=== PATIENT | male | born 1940 | race Caucasian/White ===

== ENCOUNTER 2017-07-26 01:09 | Emergency (ER) | payer OTHER ==
[~2017-07-26] VITALS: Ht 167.6 cm; Wt 75.3 kg
[~2017-07-26 01:09] MED LIST: CETI10 PO; CIPR500T4 PO; OMEP20TA39 PO; TAB-TAB PO; TRAM100T19 PO
[2017-07-26 01:21] VITALS: BP 170/125; PULSE 68; RESP 16; TEMP 97.4; O2SAT 100
[2017-07-26] MEDS ORDERED: OMEP20TA93 PO (01:57)
[2017-07-26] MEDS ORDERED: LEVO50TA4 PO (01:57)
[2017-07-26] MEDS ORDERED: TRAM50TA PO (01:57)
[2017-07-26] MEDS ORDERED: MELO15TA20 PO (01:57)
[2017-07-26] MEDS ORDERED: MORPHINE SULFATE 2 MG/ML INJ IM ONE (02:15)
[2017-07-26] MEDS ORDERED: ONDANSETRON ODT 4 MG TAB PO ONE (02:15)
[2017-07-26 02:41] VITALS: BP 138/66; PULSE 69; RESP 20; O2SAT 99
--- NOTE | 2017-07-26 02:55 | RADRPT ---
EXAM DATE/TIME: 07/26/2017 02:27 [place] COMPARISON: No previous studies available for comparison. INDICATIONS : Evaluate for calculi. Right lower back pain radiating down right leg. ORAL CONTRAST: No oral contrast ingested. RADIATION DOSE: 15.16 CTDIvol (mGy) MEDICAL HISTORY : Gastroesophageal reflux disease. SURGICAL HISTORY : Inguinal hernia repair. Cholecystectomy. ENCOUNTER: Initial ACUITY: 1 day PAIN SCALE: 10/10 LOCATION: Right flank TECHNIQUE: Volumetric scanning of the abdomen and pelvis was performed. Using automated exposure control and ad justment of the mA and/or kV according to patient size, radiation dose was kept as low as reasonably achievable to obtain optimal diagnostic quality images. DICOM format image data is available electro nically for review and comparison. FINDINGS: LOWER LUNGS: The visualized lower lungs are clear. LIVER: The visualized portions of the liver are unremarkable for noncontrast technique.. SPLEEN: Normal size without lesion. PANCREAS: Within normal limits. KIDNEYS: Normal in size and shape. There is no mass, stone, or hydronephrosis. No calcified ureteral stones. ADRENAL GLANDS: Within normal limits. VASCULAR: There is no aortic aneurysm. BOWEL/MESENTERY: No dilated loops of small or large bowel. ABDOMINAL WALL: Within normal limits. RETROPERITONEUM: There is no lymphadenopathy. BLADDER: No wall thickening or mass. REPRODUCTIVE: Within normal limits. INGUINAL: There is no lymphadenopathy or hernia. Metallic anchor screws at site of left inguinal hernia repair . MUSCULOSKELETAL: Within normal limits for patient age. CONCLUSION: Negative renal colic CT. No calcified stones or hydronephrosis. Beto Washington MD on July 26, 2017 at 2:51 Board Certified Radiologist. This report was verified electronically.
[2017-07-26] MEDS ORDERED: HYDROmorphone HCL PF 1 MG/ML VIAL IM ONE (03:15)
[2017-07-26] MEDS ORDERED: NORC5TAB PO (03:59)
--- NOTE | 2017-07-26 04:00 | PD ---
HPI Chief Complaint: Pain: Acute or Chronic Time Seen by Provider: 02:06 Travel History International Travel<30 days: No Contact w/Intl Traveler<30days: No Traveled to known affect area: No History of Present Illness HPI PATIENT HAS A HISTORY OF SCIATICA IN PAST....TODAY PAIN CAME ON AND DID NOT RESPOND TO MEDICATION HE USUALLY TAKES AT HOME. PATIENT STATES PAIN RADIATES DOWN RIGHT LE, LIKE A SHOCK/ ELECTRIC..... PFSH Past Medical History Arthritis: Yes Asthma: No Autoimmune Disease: No Anxiety: Yes Cancer: No Cardiovascular Problems: No High Cholesterol: Yes COPD: No Diabetes: No Diminished Hearing: No Endocrine: Yes Gastrointestinal Disorders: Yes (GERD) GERD: Yes Genitourinary: No Hepatitis: No Hiatal Hernia: Yes Immune Disorder: No Kidney Stones: Yes Musculoskeletal: Yes (ARTHRITIS) Neurologic: No Psychiatric: No Reproductive: No Thyroid Disease: Yes (HYPOTHYROID RESOLVED) Tetanus Vaccination: < 5 Years Influenza Vaccination: No Past Surgical History Abdominal Surgery: Yes (1989 double hernia, 1993, [facility]) Cardiac Surgery: No Cholecystectomy: Yes Ear Surgery: No Endocrine Surgery: No Eye Surgery: No Genitourinary Surgery: No Gynecologic Surgery: No Joint Replacement: Yes (LEFT TKR) Oral Surgery: Yes (TONSILLECTOMY) Thoracic Surgery: No Tonsillectomy: Yes Other Surgery: Yes Social History Alcohol Use: No Tobacco Use: No ([id number]) Substance Use: No Allergies-Medications (Allergen,Severity, Reaction): Coded Allergies: diatrizoate meglumine (Unverified Allergy, Severe, Fever, SOB, 07/26/17) gadobenic acid (Unverified Allergy, Severe, Fever, SOB, 07/26/17) gadodiamide (Unverified Allergy, Severe, Fever, SOB, 07/26/17) gadoteridol (Unverified Allergy, Severe, Fever, SOB, 07/26/17) iodixanol (Unverified Allergy, Severe, Fever, SOB, 07/26/17) iohexol (Unverified Allergy, Severe, Fever, SOB, 07/26/17) misoprostol (Unverified Allergy, Intermediate, PALPITATIONS, 07/26/17) celecoxib (Unverified Allergy, Mild, Hives, 07/26/17) loratadine (Unverified Allergy, Mild, palpations, 07/26/17) CLARITIN D SPECIFICALLY Uncoded Allergies: arthotec (Allergy, Mild, palpations, 02/27/05) Reported Meds & Prescriptions Reported Meds & Active Scripts Active Reported Omeprazole 20 Mg Tab 20 Mg PO DAILY Meloxicam 15 Mg Tab 15 Mg PO DAILY Levothyroxine (Levothyroxine Sodium) 50 Mcg Tab 50 Mcg PO DAILY Tramadol (Tramadol HCl) 50 Mg Tab 100 Mg PO Q8HR PRN Review of Systems Except as stated in HPI: all other systems reviewed are Neg Musculoskeletal: Positive: Pain (RAD RLE) Physical Exam Narrative GENERAL: SKIN: Warm and dry. HEAD: Atraumatic. Normocephalic. EYES: Pupils equal and round. No scleral icterus. No injection or drainage. ENT: No nasal bleeding or discharge. Mucous membranes pink and moist. NECK: Trachea midline. No JVD. CARDIOVASCULAR: Regular rate and rhythm. RESPIRATORY: No accessory muscle use. Clear to auscultation. Breath sounds equal bilaterally. GASTROINTESTINAL: Abdomen soft, non-tender, nondistended. POSITIVE SLR AND CONTRALATERAL SLR MUSCULOSKELETAL: Extremities without clubbing, cyanosis, or edema. No obvious deformities. NEUROLOGICAL: Awake and alert. No obvious cranial nerve deficits. Motor grossly within normal limits. Five out of 5 muscle strength in the arms and legs. Normal speech. PSYCHIATRIC: Appropriate mood and affect; insight and judgment normal. Data Data Last Documented VS Vital Signs Date Time Temp Pulse Resp B/P (MAP) Pulse Ox O2 Delivery O2 Flow Rate FiO2 07/26/17 02:41 69 20 138/66 (90) 99 07/26/17 01:[address] Abd/Pel W/O Iv Contrast (07/26/17 02:07) Ondansetron Odt (Zofran Odt) (07/26/17 02:15) Morphine Inj (Morphine Inj) (07/26/17 02:15) Hydromorphone Pf Inj (Dilaudid Pf Inj) (07/26/17 03:15) MDM Medical Decision Making Medical Screen Exam Complete: Yes Emergency Medical Condition: Yes Medical Record Reviewed: Yes Narrative Course GREAT RELIEF WITH DILAUDID DOSE AND PATIENT ABLE TO AMBULATE ON HIS OWN Diagnosis Primary Impression: Sciatica Qualified Codes: M54.31 - Sciatica, right side Patient Instructions: General Instructions, Sciatica (ED) Scripts Hydrocodone-Acetaminophen ([place]) 5 Mg-325 Mg Tab 1 TAB PO Q6H Y for PAIN, #14 TAB 0 Refills Prov: Satya Skinner MD 07/26/17 Disposition: 01 DISCHARGE HOME Condition: Stable Satya Skinner MD Jul 26, 2017 04:00
[2017-07-26 04:32] VITALS: BP 142/76
== END 2017-07-26 04:33 | disposition home or self-care (01) ==
LOC: PHED 01:09
DX: M54.31 Sciatica, right side (principal); K21.9 Gastro-esophageal reflux disease without esophagitis
CPT/HCPCS: 74176; 96374; 96375; 99284; J1170; J2270